=== PATIENT | female | born 1990 | race Two or more races ===

== ENCOUNTER → 2016-11-28 | Outpatient (REF) | payer OTHER | LOC: M LAB REF 16:54 | PROVIDERS: ATTEND Advanced Practice Midwife | DX: Z34.83 Encounter for supervision of other normal pregnancy, third trimester (principal) ==

== ENCOUNTER 2016-12-18 21:45 | Inpatient (IN) | payer OTHER ==
[~2016-12-18] VITALS: Ht 162.6 cm; Wt 95.0 kg
[2016-12-18 22:16] VITALS: BP 137/78
[2016-12-18 22:20] VITALS: BP 137/72
[2016-12-18 23:15] VITALS: BP 129/79
[2016-12-18 23:33] LABS: MEAN CORPUSCULAR HEMOGLOBIN 29.4 pg (27.0-33.0); MEAN CORPUSCULAR HGB CONC 33.8 g/dl (32.0-36.5); RED CELL DISTRIBUTION WIDTH 13.9 % (11.5-14.5); WHITE BLOOD COUNT 6.8 K/mm3 (4.0-10.0)
[2016-12-18] MEDS ORDERED: LACTATED RINGER'S 1000 ML IV STA (23:39)
[2016-12-18] MEDS ORDERED: LR 1,000 ML IV SCH (23:39)
[2016-12-18] MEDS ORDERED: OXYTOCIN DRIP 30 UNITS in APPROPRIATE DILUENT 1 EA IV SCH (23:45)
[2016-12-18] MEDS ORDERED: FENTANYL 2MCG/ML ROPIVACAINE 0.2% NACL 250 ML CADD As Ordered ONE (23:46)
[2016-12-18] MEDS ORDERED: NALOXONE INJ 0.4 MG/1 ML VIAL (J2310) IV PRN (23:47)
[2016-12-18] MEDS ORDERED: diphenhydrAMINE INJ 50MG/ML VIAL (J1200) IV PRN (23:47)
[2016-12-18] MEDS ORDERED: FENTANYL/ROPIVACAINE/NACL CADD 250 ML EPIDURAL SCH (23:47)
[2016-12-18] MEDS ORDERED: LACTATED RINGER'S 1000 ML IV PRN (23:47)
[2016-12-18] MEDS ORDERED: EPIDURAL/PCA KEYS XX PRN (23:47)
[2016-12-18] MEDS ORDERED: ONDANSETRON 4MG/2ML VIAL (J2405) IV PRN (23:47)
[2016-12-18] MEDS ORDERED: EPIDURAL COMMENT XX SCH (23:47)
[2016-12-18] MEDS ORDERED: REFRIGERATOR IV KEYS XX PRN (23:47)
[2016-12-18] MEDS ORDERED: ePHEDrine SULFATE 25 MG/5 ML(5MG/ML) SYRINGE IV PRN (23:47)
[2016-12-18 23:51] VITALS: BP 123/70
[2016-12-18 23:56] VITALS: BP 128/66
[2016-12-18 23:59] VITALS: BP 128/64
[2016-12-19] VITALS (26 sets, daily range): BP systolic 103–163; BP diastolic 57–76
--- NOTE | 2016-12-19 04:47 | HPE ---
DATE OF ADMISSION: 12/18/2016 REASON FOR ADMISSION: Premature rupture of membranes. HISTORY OF PRESENT ILLNESS: This patient is a 26-year-old 3, para 2, who presents at 39 weeks 3 days estimated gestational age by a 6-week ultrasound with complaints of leakage of fluid. She reports leakage of fluid that occurred approximately at 4 a.m. this morning that has continued throughout the day. She denies any vaginal bleeding. She reports active movement. Had some irregular contractions. Her course has been unremarkable. She initiated care in the first trimester and has been appropriate throughout. PAST MEDICAL HISTORY: None. PAST SURGICAL HISTORY: None. PAST OBSTETRICAL HISTORY: She is a 3, para 2. She has had two vaginal deliveries. She has proven to 8 pounds 4 ounces. MEDICATIONS: None. ALLERGIES: She has no known drug allergies. SOCIAL HISTORY: She denies any alcohol, tobacco, or drug use during the . LABORATORIES: Her blood type is O positive. Antibody screen is negative. Rubella is immune. RPR is nonreactive. HIV is negative. Hepatitis surface antigen is negative. Hepatitis C is nonreactive. Chlamydia and gonorrhea screens are negative. She had a normal 1-hour Glucola. She is group B Streptococcus (GBS) negative. PHYSICAL EXAMINATION: VITAL SIGNS: Stable. She is afebrile. GENERAL APPEARANCE: Is well appearing, no acute distress. She has a category 1 heart rate tracing with irregular contractions on tachometer. LUNGS: Clear to auscultation bilaterally. CARDIOVASCULAR: Heart regular rate and rhythm. ABDOMEN: Soft, gravid, nontender. Estimated weight (EFW) 3600 grams. CERVICAL EXAMINATION: She was 3 cm dilated, 50% effaced, -2 station, grossly ruptured. ASSESSMENT: 1. This patient is a 26-year-old 3, para 2, who presents at 39 weeks 3 days estimated gestational age with premature rupture of membranes. 2. Reassuring status. PLAN: 1. Admit to labor and delivery. CBC, RPR, type and screen. 2. Augmentation of labor with Pitocin. She has also been verbally consented for emergency surgery, blood products, anesthesia and desires to proceed with admission with augmentation of labor. 3. Patient is a good candidate for an epidural. 4. Anticipate spontaneous vaginal delivery.
[2016-12-19] MEDS ORDERED: OXYTOCIN DRIP 30 UNITS in APPROPRIATE DILUENT 1 EA IV SCH (08:03)
[2016-12-19] MEDS ORDERED: METHYLERGONOVINE MALEATE 0.2 MG TAB PO PRN (08:15)
[2016-12-19] MEDS ORDERED: MOM 30ML SUSPENSION UDC PO PRN (08:15)
[2016-12-19] MEDS ORDERED: ACETAMINOPHEN 500 MG TAB PO PRN (08:15)
[2016-12-19] MEDS ORDERED: DOCUSATE SODIUM 100 MG CAP PO PRN (08:15)
[2016-12-19] MEDS ORDERED: DIBUCAINE 1% OINTMENT 30GM TOP PRN (08:15)
[2016-12-19] MEDS ORDERED: IBUPROFEN 800 MG TAB PO PRN (08:15)
[2016-12-19] MEDS ORDERED: MEASLES,MUMPS,RUBELLA VACCINE INJ (MMR-II) (90707) SC SCH (08:15)
[2016-12-19] MEDS ORDERED: RHOGAM 300 MCG (1500 IU) INJ (J2790) IM SCH (08:15)
--- NOTE | 2016-12-19 08:34 | DN ---
DATE OF DELIVERY: 12/19/2016 TIME OF : 07:35. GENDER: MALE. : 9/10. WEIGHT: 8 pounds, 10 ounces, or 3910 grams. ESTIMATED BLOOD LOSS: 300 mL LACERATIONS: None. ANESTHESIA: Epidural. COUNTS: 5 laparotomy sponges accounted for prior to and after delivery. DELIVERY NOTE: On 12/19/2016 at 07:35 Ms. Moore a 26-year-old 3, now para 3 had a spontaneous vaginal delivery of a liveborn male infant, 9/10, weight 8 pounds, 10 ounces, or 3910 grams that was delivered right occipital anterior (JOSEFA) over an intact perineum, left anterior shoulder was then delivered with gentle, downward traction. There was a loose nuchal cord which was manually reduced followed by delivery of right anterior shoulder and corpus. Infant was handed to mom with a good cry. Cord was clamped times two, was cut by the father of the baby under my direction. Cord blood was obtained. The placenta was then drained and delivered grossly intact. A premixed bag of 500 mL of normal saline with 30 units of Pitocin was then bolused along with uterine massage until the uterus was firm. On reinspection, the cervix, vagina, and perineum were grossly intact and hemostatic. Mother and baby recovering in stable condition. The couple decided to name their son, Federico.
[2016-12-19] MEDS: PRENATAL VITAMIN TAB PO SCH (09:00)
[2016-12-20 06:09] VITALS: BP 117/64
[2016-12-20] MEDS: PRENATAL VITAMIN TAB PO SCH (08:37)
[2016-12-20 10:01] VITALS: BP 118/60
[2016-12-20 18:10] VITALS: BP 121/74
[2016-12-21 06:28] VITALS: BP 130/70
[2016-12-21] MEDS: PRENATAL VITAMIN TAB PO SCH (08:50)
[2016-12-21] MEDS ORDERED: ACET50TA PO (11:10)
[2016-12-21] MEDS ORDERED: IBUP-1114 PO (11:10)
[2016-12-21] MEDS ORDERED: PRENTAB9 PO (11:10)
== END 2016-12-21 12:15 | disposition home or self-care (01) | DRG 560 ==
LOC: M LDO 21:45 → M LDI 22:21 → M OBS 12-19 10:20
PROVIDERS: ADMIT Obstetrics & Gynecology; ATTEND Obstetrics & Gynecology
PROC: 10E0XZZ Delivery of Products of Conception, External Approach (ICD-10-PCS; principal; 2016-12-19)
DX: O42.02 Full-term premature rupture of membranes, onset of labor within 24 hours of rupture (principal); O69.82X0 Labor and delivery complicated by other cord entanglement, without compression, not applicable or unspecified; Z37.0 Single live birth; Z3A.39 39 weeks gestation of pregnancy

== ENCOUNTER → 2017-09-30 | Outpatient (REF) | payer OTHER ==
[~2017-09-30] MED LIST: ACET50TA PO; IBUP-1114 PO; PRENTAB9 PO
[2017-09-30 18:09] LABS: ALBUMIN 3.5 GM/DL (3.2-5.2); ALBUMIN/GLOBULIN RATIO 0.85 (1.00-1.93); ALKALINE PHOSPHATASE 68 U/L (45-117); ALT/SGPT 28 U/L (12-78); AST/SGOT 21 U/L (7-37); BILIRUBIN,DIRECT 0.1 MG/DL (0.0-0.2); BILIRUBIN,TOTAL 0.4 MG/DL (0.2-1.0); TOTAL PROTEIN 7.6 GM/DL (6.4-8.2)
[2017-10-01 10:49] LABS: HEPATITIS B SURFACE ANTIBODY POSITIVE (POSITIVE)
== END ==
LOC: M SFHCLERA 12:29
PROVIDERS: ATTEND Family Medicine
DX: Z01.84 Encounter for antibody response examination (principal); E66.9 Obesity, unspecified

== ENCOUNTER → 2018-01-06 | Outpatient (CLI) | payer OTHER | LOC: M RAD 09:49 | DX: R22.9 Localized swelling, mass and lump, unspecified (principal) | CPT/HCPCS: 76882 ==

== ENCOUNTER → 2018-11-17 | Outpatient (REF) | payer OTHER ==
[~2018-11-17] MED LIST changes: -ACET50TA PO; +MAPA500T2 PO
== END ==
LOC: M LAB REF 17:54
PROVIDERS: ATTEND Advanced Practice Midwife
DX: Z12.4 Encounter for screening for malignant neoplasm of cervix (principal)

== ENCOUNTER → 2019-03-03 | Outpatient (REF) | payer OTHER | LOC: M LAB REF 13:35 | PROVIDERS: ATTEND Specialist | DX: R87.613 High grade squamous intraepithelial lesion on cytologic smear of cervix (HGSIL) (principal) ==

== ENCOUNTER → 2019-05-17 | Outpatient (REF) | payer OTHER | LOC: M LAB REF 19:18 | PROVIDERS: ATTEND Specialist | DX: D06.9 Carcinoma in situ of cervix, unspecified (principal) ==

== ENCOUNTER → 2019-06-10 | Outpatient (REF) | payer OTHER | LOC: M LAB REF 13:00 | PROVIDERS: ATTEND Specialist | DX: Z11.3 Encounter for screening for infections with a predominantly sexual mode of transmission (principal) ==

== ENCOUNTER → 2020-05-03 | Outpatient (REF) | payer OTHER ==
[2020-05-04 18:25] LABS: CHLAMYDIA DNA AMPLIFICATION NEGATIVE (NEGATIVE); GC DNA AMPLIFICATION NEGATIVE (NEGATIVE)
== END ==
LOC: M SFHCLERA 15:23
PROVIDERS: ATTEND Nurse Practitioner Family
DX: N89.8 Other specified noninflammatory disorders of vagina (principal)